=== PATIENT | female | born 1940 | race Caucasian/White ===

== ENCOUNTER 2016-10-12 13:11 | Emergency (ER) | payer MEDICARE, BC ==
[~2016-10-12 13:11] MED LIST: CATAPRES0.1 MG PO; ENSURE LIQUID237 ML PO; KETOROLAC TROME10 MG PO; LEVAQUIN750 MG PO; PERCOCET 10-321 EACH PO; REQUIP1 MG PO; TOPROL XL100 MG PO; VITAMIN D250000 UNIT PO
[2016-10-12 13:51] LABS: URINE BILIRUBIN NEGATIVE (NEGATIVE); URINE BLOOD TRACE (NEGATIVE); URINE GLUCOSE (UA) NORMAL (NORMAL); URINE KETONE NEGATIVE (NEGATIVE); URINE LEUKOCYTE ESTERASE TRACE (NEGATIVE); URINE NITRATE NEGATIVE (NEGATIVE); URINE PROTEIN NEGATIVE (NEGATIVE); UROBILINOGEN NORMAL mg/dL (<1.0)
[2016-10-12 14:02] LABS: URINE RBC 0-5 /[HPF] (0-2)
[2016-10-12 14:03] LABS: URINE BACTERIA FEW (NONE SEEN); URINE SQUAMOUS EPITHELIAL CELL 0-10 /[HPF] (NONE SEEN); URINE YEAST FEW (NONE SEEN)
== END 2016-10-12 15:15 | disposition home or self-care (01) ==
LOC: ER 13:11
PROVIDERS: Internal Medicine
DX: M25.551 Pain in right hip (principal); I10 Essential (primary) hypertension; Z88.5 Allergy status to narcotic agent; Z79.899 Other long term (current) drug therapy; Z79.891 Long term (current) use of opiate analgesic
CPT/HCPCS: 73502; 81001; 87086; 96372; 99283; 99283-25